=== PATIENT | female | born 1950 | race Caucasian/White ===

== ENCOUNTER → 2020-08-18 | Outpatient (CLI) | payer OTHER ==
[~2020-08-18] MED LIST: ADULT LOW DOSE81 MG PO; ALEVE220 M1 PO; ALLEGRA-D 12 H1 EAC1 PO; ASPIRIN325 PO; ASPIRIN81 M2 PO; ATENOLOL 100MG100 MG PO; BACLOFEN 10MG T10 M1 PO; BYSTOLIC10 MG PO; CELEBREX 200 M200 MG PO; CRESTOR20 MG PO; CYCLOBENZAPRINE10 MG PO; CYMBALTA60 MG PO; DIAZEPAM 5 MG5 M1 PO; GABAPENTIN PO; HYDROCODON-ACE1 EAC7 PO; IBUPROFEN 200200 M1 PO; INDOMETHACIN 2525 MG PO; MOBIC7.5 M1 PO; NEURONTIN 300M300 M2 PO; NEURONTIN600 MG PO; OXYCODONE HCL5 M1 PO; ROXICODONE5 M1 PO; VALIUM2 MG PO; XALATAN2.5 ML OPHTHALMIC
== END ==
LOC: SJCVC 11:29
PROVIDERS: ATTEND Internal Medicine
DX: I10 Essential (primary) hypertension (principal); Q23.1 Congenital insufficiency of aortic valve; Q21.1 Atrial septal defect; E78.5 Hyperlipidemia, unspecified; I71.2 Thoracic aortic aneurysm, without rupture; I70.8 Atherosclerosis of other arteries; H35.09 Other intraretinal microvascular abnormalities; E11.9 Type 2 diabetes mellitus without complications; G35 Multiple sclerosis; Z79.899 Other long term (current) drug therapy

== ENCOUNTER → 2021-02-16 | Outpatient (CLI) | payer OTHER | LOC: SJCVCIMAG 09:21 | PROVIDERS: ATTEND Internal Medicine | DX: I35.2 Nonrheumatic aortic (valve) stenosis with insufficiency (principal); I35.8 Other nonrheumatic aortic valve disorders; R00.2 Palpitations; E78.5 Hyperlipidemia, unspecified; I10 Essential (primary) hypertension; I71.2 Thoracic aortic aneurysm, without rupture; I70.8 Atherosclerosis of other arteries; H35.09 Other intraretinal microvascular abnormalities; E11.39 Type 2 diabetes mellitus with other diabetic ophthalmic complication; H40.9 Unspecified glaucoma; H42 Glaucoma in diseases classified elsewhere; I65.23 Occlusion and stenosis of bilateral carotid arteries; G35 Multiple sclerosis; Q23.1 Congenital insufficiency of aortic valve; Q21.1 Atrial septal defect; J45.909 Unspecified asthma, uncomplicated; Z79.82 Long term (current) use of aspirin; Z79.899 Other long term (current) drug therapy; Z88.1 Allergy status to other antibiotic agents; Z88.5 Allergy status to narcotic agent; Z88.8 Allergy status to other drugs, medicaments and biological substances ==

== ENCOUNTER → 2021-03-03 | Outpatient (CLI) | payer OTHER | LOC: SJCVCIMAG 07:55 | PROVIDERS: ATTEND Internal Medicine | DX: Z01.810 Encounter for preprocedural cardiovascular examination (principal); E78.5 Hyperlipidemia, unspecified; E11.9 Type 2 diabetes mellitus without complications; I10 Essential (primary) hypertension; Z79.82 Long term (current) use of aspirin; Z79.899 Other long term (current) drug therapy ==